=== PATIENT | female | born 1990 | race Hispanic/Latino ===

== ENCOUNTER 2022-04-18 09:04 | Emergency (ER) | payer OTHER ==
[~2022-04-18] VITALS: Ht 157.5 cm; Wt 94.9 kg
[2022-04-18] MEDS ORDERED: IBUPROFEN 600 MG TAB PO STA (09:31)
[2022-04-18] MEDS ORDERED: NAPROSYN500 MG PO (10:09)
[2022-04-18] MEDS ORDERED: ACETAMINOPHEN-1 EAC4 PO (10:43)
== END 2022-04-18 10:51 | disposition home or self-care (01) ==
LOC: FSED 09:32
DX: S62.313A Displaced fracture of base of third metacarpal bone, left hand, initial encounter for closed fracture (principal); S62.315A Displaced fracture of base of fourth metacarpal bone, left hand, initial encounter for closed fracture; Y93.83 Activity, rough housing and horseplay; Y92.89 Other specified places as the place of occurrence of the external cause
CPT/HCPCS: 99284